=== PATIENT | female | born 1975 | race Caucasian/White ===

== ENCOUNTER 2018-03-25 02:37 | Emergency (ER) | payer OTHER ==
[~2018-03-25] VITALS: Ht 157.5 cm; Wt 86.2 kg
[~2018-03-25 02:37] MED LIST: BUSPIRONE HCL10 MG PO; ENALAPRIL-HCTZ1 EACH PO; GABAPENTIN300 MG PO; HYDROCHLOROTHIA25 MG PO; KLONOPIN2 MG PO; LAMOTRIGINE150 MG PO; LIBRAX1 CAP PO; PROZAC20 MG PO; SEROQUEL200 MG PO; SEROQUEL25 MG PO; Z.0.LISINOPRIL5 MG PO; Z.0.NEXIUM20 MG PO; Z.0.VICODIN 5-5001 E PO; Z.0.XANAX0.5 MG PO; [UNRECOGNIZED DRUG - CODE] PO
--- OUTSIDE RECORDS SUMMARY | 2018-03-25 02:41 | XMS REPORT ---
Author Author [facility] Address Unknown Phone Unavailable Care Team Providers Care Hvac Tech Name Role Phone UNKNOWN, REFFERING PP Unavailable Problems This patient has no known problems. Allergies, Adverse Reactions, Alerts This patient has no known allergies or adverse reactions. Medications This patient has no known medications. Encounters Start Date/Time End Date/Time Encounter Type Admission Type Attending Clinicians Care Facility Care Department Encounter ID 2017-10-21 15:13:00 2017-10-21 15:13:00 Emergency E [facility] MED [id number] Results Test Description Test Time Test Comments Text Results Atomic Results Result Comments XR SHOULDER 2+V.COMPLETE-LEFT 2017-10-21 17:52:11 EXAM: LEFT SHOULDER 2 VIEWSINDICATION: MVACOMPARISON: None availableTECHNIQUE: 2 views of the left shoulder were obtained.FINDINGS:No acute fracture or dislocation. The glenohumeral and acromioclavicularjoints are normal. The acromiohumeral interval is normal. No osseouslesions are identified. The soft tissues are normal. The visualizedthorax is normal.IMPRESSION:No acute fracture or dislocation is identified.LOCATION: [facility] CT LUMBAR SPINE [facility] W/O CONTRAST 2017-10-21 17:47:32 EXAM: CT LUMBAR SPINE WITHOUT CONTRASTINDICATION: MVACOMPARISON: None availableTECHNIQUE: Axial CT imaging of the lumbar spine was obtained withoutadministration of intravenous contrast. Sagittal and coronalreconstructions were submitted for review.IV contrast: None.DLP: 874.2 mGy-cmFINDINGS: Postprocedural changes of prior vertebroplasty of T12 and L1. Otherwise,the vertebral bodies are normal in height, alignment and density. Thefacet joints and spinous processes are normal in alignment. Theintervertebral discs are normal. No spinal canal or neuroforaminal stenosis. No soft tissue abnormality is identified. The imaged portion of theabdomen is unremarkable.IMPRESSION: 1. No acute abnormality of the lumbar spine.2. Post vertebroplasty changes noted at T12 and L1.LOCATION: [facility] CT CERVICAL SPINE [facility] W/O CONTRAS 2017-10-21 17:44:15 EXAM: CT CERVICAL SPINE WITHOUT CONTRASTINDICATION: MVACOMPARISON: None availableTECHNIQUE: Axial CT imaging of the cervical spine was obtained withoutintravenous contrast. Coronal and sagittal reformatted images weresubmitted for review. IV contrast: NoneDLP: 3093 mGy-cmDISCUSSION: No acute fracture or dislocation is identified. The atlantoaxial andatlantooccipital articulations are normal. The vertebral bodies arenormal in height and density. There is straightening of the normalcervical lordosis. The facet joints and spinous processes are normal inalignment. Mild discogenic disease throughout the cervical spine.No spinal canal or neuroforaminal stenosis.The prevertebral and posterior paraspinal soft tissues are normal.IMPRESSION: 1. No acute abnormality of the cervical spine.2. Mild discogenic disease throughout the cervical spine.LOCATION: R16 CT HEAD OR BRAIN WO CONTRAST 2017-10-21 17:43:24 EXAM: CT BRAIN WITHOUT CONTRASTINDICATION: MVCCOMPARISON: None availableTECHNIQUE: Routine axial noncontrast CT images of the brain wereobtained.IV contrast: None.FINDINGS: No intra-axial or extra-axial fluid collections are identified. No acutehemorrhage.There is normal differentiation of the frank and white matter. Theventricles and sulci are normal in size and shape with no midline shiftor mass effect. The basal cisterns are patent. The posterior fossa andfourth ventricle are normal.The paranasal sinuses and mastoid air cells are clear. No calvariallesions. Skull base is intact. Orbits and globes are unremarkable.IMPRESSION:No acute intracranial abnormality. No intracranial hemorrhage.LOCATION: [facility] XR FOREARM 2V.-LEFT 2017-10-21 16:44:53 XR ELBOW 2V-LEFT, XR FOREARM 2V.- LEFTLOCATION: [id number]:MVACOMPARISON: None.DISCUSSION:Frontal and lateral radiographs of the left elbow and left forearm (4total) were submitted for interpretation. No fracture, dislocation, lytic or blastic lesions are identified. The joint spaces are preserved.IMPRESSION:No acute osseous abnormalities. XR ELBOW 2V-LEFT 2017-10-21 16:44:53 XR ELBOW 2V-LEFT, XR FOREARM 2V.- LEFTLOCATION: [id number]:MVACOMPARISON: None.DISCUSSION:Frontal and lateral radiographs of the left elbow and left forearm (4total) were submitted for interpretation. No fracture, dislocation, lytic or blastic lesions are identified. The joint spaces are preserved.
[2018-03-25] MEDS ORDERED: GABAPENTIN300 MG PO (03:02)
[2018-03-25] MEDS ORDERED: ATENOLOL50 MG PO (03:02)
[2018-03-25] MEDS ORDERED: CLONAZEPAM1 MG PO (03:02)
[2018-03-25] MEDS ORDERED: NORCO 10-325 T1 EACH PO (03:02)
[2018-03-25] MEDS ORDERED: CYCLOBENZAPRINE10 MG PO (03:02)
[2018-03-25] MEDS ORDERED: BENADRYL25 M1 PO (03:02)
[2018-03-25 03:11] LABS: BASOPHILS # (AUTO) 0.1 (0.0-0.1); BASOPHILS % 1.2 % (0.0-1.0); EOSINOPHILS # (AUTO) 0.5 (0.0-0.4); EOSINOPHILS % 9.3 % (0.0-6.0); HEMATOCRIT 38.8 % (34.2-44.1); HEMOGLOBIN 11.9 g/dL (12.0-16.0); LYMPHOCYTES # (AUTO) 2.3 (1.0-3.2); LYMPHOCYTES % 39.6 % (18.0-39.1); MEAN CORPUSCULAR HEMOGLOBIN 23.6 pg (28-32); MEAN CORPUSCULAR HGB CONC 30.7 g/dL (31-35); MONOCYTES # (AUTO) 0.4 (0.2-0.8); MONOCYTES % 7.6 % (4.4-11.3); NEUTROPHILS # (AUTO) 2.4 (2.1-6.9); NEUTROPHILS % 42.1 % (38.7-80.0); PLATELET COUNT 426 x10e3/uL (140-360); RED BLOOD COUNT 5.04 x10e6/uL (3.6-5.1); RED CELL DISTRIBUTION WIDTH 17.8 % (11.7-14.4)
[2018-03-25 03:27] LABS: ALANINE AMINOTRANSFERASE 8 IU/L (0-55); ALBUMIN 3.8 g/dL (3.5-5.0); ALBUMIN/GLOBULIN RATIO 0.9 (0.8-2.0); ALKALINE PHOSPHATASE 66 IU/L (40-150); ANION GAP 14.8 mmol/L (8-16); BLOOD UREA NITROGEN 8 mg/dL (7-26); BUN/CREATININE RATIO 8 (6-25); CALCIUM 9.7 mg/dL (8.4-10.2); CARBON DIOXIDE 24 mmol/L (22-29); CHLORIDE 105 mmol/L (98-107); CREATININE, SERUM 0.99 mg/dL (0.57-1.11); EST GLOMERULAR FILTRATION RATE > 60 ML/MIN (60-); GLUCOSE 90 mg/dL (74-118); POTASSIUM 3.8 mmol/L (3.5-5.1); SODIUM 140 mmol/L (136-145)
--- NOTE | 2018-03-25 05:07 | Diagnostic Imaging Report ---
EXAMINATION: CT of the neck with contrast HISTORY: Difficulty breathing, itching around the neck for the last 4 days, neck spine surgery on 03/18/2018 COMPARISON: None TECHNIQUE: Multidetector helical axial images were obtained from the sternal notch through the skull base during intravenous infusion of iodinated contrast material. Images were reconstructed using soft tissue and bone algorithms and were viewed in multiplanar format. Intravenous contrast: 100 mL of Isovue-370. FINDINGS: Primary lesion: Soft tissue swelling in the left prevertebral/deep soft tissues of the left lower neck at the level of C6-C7 surgery, with small focus of air, related to surgical approach for recent cervical spine fusion, no discrete organized fluid collection at this time. Minimal thickening of the overlying skin, likely surgical wound. Nodes: No lymphadenopathy. Sinuses: Imaged portions unremarkable. Oral cavity: Unremarkable. Salivary glands: Parotid and submandibular glands unremarkable. Pharynx: Unremarkable. Larynx: Unremarkable. Thyroid gland: Unremarkable. Upper esophagus: Mildly distended partially visualized upper thoracic esophagus. Blood vessels: Unremarkable. Bones: Status post ACDF at, no significant canal or foraminal stenoses. IMPRESSION: 1. The upper airway is patent. 2. Expected postoperative changes from recent ACDF at C6-7 Signed by: Dr. Robina Nash M.D. on 03/25/2018 5:03 AM
[2018-03-25 05:12] VITALS: BP 141/85
[2018-03-25] MEDS ORDERED: IOPAMIDOL 370 MG/ML 200 ML INFUS..BTL INJ ONE (11:21)
[2018-03-25] MEDS ORDERED: SODIUM CHLORIDE 0.9% 50ML 50 ML ONE (11:21)
== END 2018-03-25 05:24 | disposition home or self-care (01) ==
LOC: ER 02:37
DX: Z98.890 Other specified postprocedural states (principal); R07.0 Pain in throat; I10 Essential (primary) hypertension; E11.9 Type 2 diabetes mellitus without complications; M54.9 Dorsalgia, unspecified; G89.29 Other chronic pain
CPT/HCPCS: 36415; 70491; 80053; 85025; 99283; Q9967